=== PATIENT | male | born 1945 | race Caucasian/White ===

== ENCOUNTER 2016-04-12 07:37 | Day surgery (SDC) | payer BC, OTHER ==
[2016-04-09 12:45] VITALS: BMI 27.6
[2016-04-12 09:36] VITALS: TEMP 97.6
[2016-04-12 10:14] VITALS: BP 120/66; PULSE 50
--- NOTE | 2016-04-13 13:00 | PATH ---
Surgical Pathology Report Patient Name: SYLVIA MORILLO [facility]. Rec. #: [id number] /Age/Gender: 1945 (Age: 70) / M Account: [id number] Location: [facility]-ENDOSCOPY Taken: 04/12/2016 Received: 04/12/2016 Reported: 04/13/2016 Physicians: Carlos Levine M.D. Specimen(s) Received BX POLYP PROXIMAL TRANSVERSE COLON Clinical History History of colon polyps Colon polyp, diverticulosis Final Diagnosis COLON, PROXIMAL TRANSVERSE, BIOPSY: COLONIC MUCOSA WITH NO PATHOLOGIC CHANGES. NO ADENOMATOUS OR HYPERPLASTIC CHANGES ARE IDENTIFIED. Electronically Signed Cornelius Yepez M.D. Gross Description Received in formalin, labeled "polyp proximal transverse colon" are 2 diaz, irregular portions of soft tissue measuring 0.2 and 0.4 cm. in greatest dimension. The specimens are submitted in toto in one cassette. /04/12/201604/12/2016
== END 2016-04-12 10:14 | disposition home or self-care (01) ==
LOC: JASU-ENDO 07:37
PROVIDERS: ATTEND Internal Medicine Gastroenterology
PROC: 0DBL8ZX Excision of Transverse Colon, Via Natural or Artificial Opening Endoscopic, Diagnostic (ICD-10-PCS; principal; 2016-04-12 09:00)
DX: Z12.11 Encounter for screening for malignant neoplasm of colon (principal); D12.3 Benign neoplasm of transverse colon; K57.30 Diverticulosis of large intestine without perforation or abscess without bleeding; K64.8 Other hemorrhoids; Z86.010 Personal history of colon polyps; Z80.0 Family history of malignant neoplasm of digestive organs
CPT/HCPCS: 88305-TC

== ENCOUNTER 2018-08-13 23:52 | Emergency (ER) | payer OTHER | END 2018-08-14 02:55 | disposition home or self-care (01) | LOC: JER 23:52 ==